=== PATIENT | female | born 2000 | race Two or more races ===

== ENCOUNTER 2018-12-18 21:53 | Emergency (ER) | payer MEDICAID ==
[2018-12-18 21:59] VITALS: BP 133/75
[2018-12-18] MEDS ORDERED: DIPH/PERTUSS(ACELL)/TETANUS VAC/PF 0.5 ML SYR (>=10YO) IM ONE (23:55)
[2018-12-18] MEDS ORDERED: ACETAMINOPHEN 325 MG TABLET PO ONE (23:56)
[2018-12-18] MEDS ORDERED: IBUPROFEN 600 MG TABLET PO ONE (23:56)
--- NOTE | 2018-12-18 23:56 | ER Document Report ---
HPI - HPI Time Seen by Provider: 12/18/18 23:53 Pain Level: 4 Context: Patient is a 18-year-old female who presents emergency department with a chief complaint of left great toe pain. Earlier today she caught her toe on the door and she states that it has not stopped bleeding. This happened around 1400. She does not know when her last tetanus shot was. She denies any past medical history. Denies any medication use. Denies smoking, alcohol, and illicit drug use. - ROS Systems Reviewed and Negative: Yes All other systems reviewed and negative - CONSTITUTIONAL Constitutional: DENIES: Fever - REPRODUCTIVE Reproductive: DENIES: : - MUSCULOSKELETAL Musculoskeletal: REPORTS: Extremity pain - Right great toe - DERM Skin Color: Normal Skin Problems: None Past Medical History - Social History Smoking Status: Never Smoker Family History: Reviewed & Not Pertinent Vertical Provider Document - CONSTITUTIONAL Agree With Documented VS: Yes Exam Limitations: No Limitations - INFECTION CONTROL TRAVEL OUTSIDE OF THE [place] IN LAST 30 DAYS: No - HEENT HEENT: Atraumatic, Normocephalic, PERRLA - NECK Neck: Normal Inspection - RESPIRATORY Respiratory: No Respiratory Distress - CARDIOVASCULAR Cardiovascular: Regular Rate - MUSCULOSKELETAL/EXTREMETIES Musculoskeletal/Extremeties: FROM, Tender - Left great toe, Edema - Very mild to Left great toe, Eccymosis - Very mild to left great toe - NEURO Level of Consciousness: Awake, Alert, Appropriate Motor/Sensory: No Motor Deficit, No Sensory Deficit - DERM Integumentary: Warm, Dry, Laceration - Left great toe Course - Re-evaluation Re-evalutation: 12/19/18 00:44 Patient's left great toe was removed. She tolerated the procedure well. I do not suspect patient has a bone injury at this time. She will be started on Keflex prophylactically. She will follow-up with her primary care doctor. Verbal discharge instructions were given to the patient. They verbalized understanding. They are stable for discharge. - Vital Signs Vital signs: Temp Pulse Resp BP Pulse Ox 98.3 F 98 20 133/75 H 100 12/18/18 21:58 12/18/18 21:58 12/18/18 21:58 12/18/18 21:58 12/18/18 21:58 Procedures - Nail Trephanation/Removal Left Great toe Nail Trepanation/Removal Location: Left great toe Betadine prep applied: No - Shur-Clens used Method of Drainage: Other - Great toe removal Sterile Dressing Applied: Yes Finger Splint: No Discharge - Discharge Clinical Impression: Toe injury Qualifiers: Encounter type: initial encounter Laterality: left Qualified Code(s): S99.922A - Unspecified injury of left foot, initial encounter Condition: Stable Disposition: HOME, SELF-CARE Instructions: Prophylactic Antibiotic ([facility]) Additional Instructions: You were seen today in the emergency department for left toe pain. Your toenail was removed here in the emergency department. Keep your toe clean and dry. Wrap your with gauze as needed. Your toenail should grow back within the next few months. You are started on antibiotics to prevent infection. Please follow-up with your primary care provider in regards to this visit. Prescriptions: Cephalexin Monohydrate [Keflex 500 mg Capsule] 500 mg PO Q6H 5 Days capsule Forms: Return to Work
[2018-12-18] MEDS ORDERED: LIDOCAINE 1% INJ-PF (10 MG/ML) 30 ML SDV INJ ONE (23:57)
[2018-12-18] MEDS ORDERED: LIDOCAINE 1% INJ-PF (10 MG/ML) 30 ML SDV ONE (23:59)
== END 2018-12-19 01:10 | disposition home or self-care (01) ==
LOC: ER 21:53
DX: S99.921A Unspecified injury of right foot, initial encounter (principal); X58.XXXA Exposure to other specified factors, initial encounter
CPT/HCPCS: 99283; 90471; 90715; 11750; J3490